=== PATIENT | female | born 1965 | race Caucasian/White ===

== ENCOUNTER 2017-11-06 12:53 | Emergency (ER) | payer MEDICAID ==
[~2017-11-06] VITALS: Ht 165.1 cm; Wt 60.0 kg
[~2017-11-06 12:53] MED LIST: PROZ20CA11 PO
[2017-11-06 12:55] VITALS: BP 167/98; PULSE 84; RESP 16; TEMP 98.2; O2SAT 99
--- NOTE | 2017-11-06 14:34 | RADRPT ---
EXAM DATE/TIME: 11/06/2017 13:53 [place] COMPARISON: No previous studies available for comparison. INDICATIONS : Left hip pain, no injury. MEDICAL HISTORY : None. SURGICAL HISTORY : Left total hip replacement ENCOUNTER: Initial ACUITY: 1 month PAIN SCORE: 7/10 LOCATION: Left hip FINDINGS: A left hip prosthesis is noted in place and appears intact. There is no evidence of fracture or loose yin. Bony pelvis is intact. CONCLUSION: 1. Status post left hip replacement. 2. No evidence of acute fracture or dislocation. Francisco Nicholas MD on November 06, 2017 at 14:33 Board Certified Radiologist. This report was verified electronically.
[2017-11-06] MEDS ORDERED: FLUO60TA PO (14:57)
[2017-11-06] MEDS ORDERED: PRED20 PO (16:00)
[2017-11-06] MEDS ORDERED: TRAM50TA PO (16:00)
--- NOTE | 2017-11-06 16:08 | PD ---
HPI Chief Complaint: Hip Injury Time Seen by Provider: 14:57 Travel History International Travel<30 days: No Contact w/Intl Traveler<30days: No Traveled to known affect area: No History of Present Illness HPI The patient was seen and examined in the presence of the nurse. This patient complains of pain in her left hip. Duration is one month. This been gradually worsening over that time. No acute injury. She did have a hip replacement 8 or 9 months ago. Symptoms severity is moderate. No fever. She is ambulatory but has pain when she ambulates. PFSH Past Medical History Depression: Yes Diminished Hearing: No ?: Not Past Surgical History Abdominal Surgery: Yes (LAP) Eye Surgery: Yes (BILAT EYE) Other Surgery: Yes (BREAST IMPLANTS) Social History Alcohol Use: Yes (VODKA DAILY) Tobacco Use: Yes (1/2 PACK DAILY) Substance Use: No Allergies-Medications (Allergen,Severity, Reaction): Coded Allergies: No Known Allergies (Unverified Allergy, Unknown, 11/06/17) Per pt. Reported Meds & Prescriptions Reported Meds & Active Scripts Active Prednisone 20 Mg Tab 40 Mg PO DAILY Take 40 mg (2 tablets) daily for 5 days Tramadol (Tramadol HCl) 50 Mg Tab 50 Mg PO Q6H PRN Reported Fluoxetine (Fluoxetine HCl) 60 Mg Tab 60 Mg PO DAILY Review of Systems General / Constitutional: No: Fever HENT: No: Headaches Cardiovascular: No: Chest Pain or Discomfort Respiratory: No: Cough Gastrointestinal: No: Vomiting Musculoskeletal: Positive: Pain Physical Exam Narrative GASTROINTESTINAL: Abdomen soft, non-tender, nondistended. Positive bowel sounds. No hepato-splenomegaly, or palpable masses. No guarding. SKIN: Focused skin assessment reveals no rash or ulcers. Skin is warm and dry. Palpation shows no induration or nodules. Good range of motion of both hips. No long bone tenderness. She has a lot of tenderness over the left trochanteric bursa but there is no objective erythema or warmth or bruising Data Data Last Documented VS Vital Signs Date Time Temp Pulse Resp B/P (MAP) Pulse Ox O2 Delivery O2 Flow Rate FiO2 11/06/17 12:55 98.2 84 16 167/98 (121) 99 Orders Orders Hip, Uni(Ap&Lat) W Ap Pelvis (11/06/17 ) MDM Medical Decision Making Medical Screen Exam Complete: Yes Emergency Medical Condition: Yes Medical Record Reviewed: Yes Differential Diagnosis Bursitis, fracture, dislocation Narrative Course I have reviewed the patient's electronic medical record. I reviewed her pelvis x-ray which is negative for fracture I reviewed her left hip x-ray which is negative I think this patient has trochanteric bursitis At least that is the exact location of her pain which is well localized No sign of infection or fracture or dislocation I gave her crutches so she can rest the hip and will ice it I'm going to prescribe 5 days of prednisone and some medicine for pain The patient was advised to follow up with their physician and return if they worsen. Diagnosis Primary Impression: Trochanteric bursitis of left hip Additional Instructions: The patient was advised to follow up with their physician and return if they worsen. The patient was warned about potential sedation for the medications they will receive on prescription. Apply ice to the left hip Use crutches for a few days Med/Other Pt SpecificInfo: Prescription(s) given Scripts Prednisone (Prednisone) 20 Mg Tab 40 MG PO DAILY, #10 TAB 0 Refills Take 40 mg (2 tablets) daily for 5 days Prov: Arash Mendoza MD 11/06/17 Tramadol (Tramadol) 50 Mg Tab 50 MG PO Q6H Y for PAIN, #20 TAB 0 Refills Prov: Arash Mendoza MD 11/06/17 Disposition: 01 DISCHARGE HOME Condition: Stable Arash Mendoza MD Nov 06, 2017 16:08
== END 2017-11-06 16:30 | disposition home or self-care (01) ==
LOC: NEPD 12:53
DX: F17.210 Nicotine dependence, cigarettes, uncomplicated (principal); M70.62 Trochanteric bursitis, left hip
CPT/HCPCS: 73502; 99283